=== PATIENT | male | born 1955 | race Caucasian/White ===

== ENCOUNTER 2022-03-25 10:03 | Outpatient (CLI) | payer OTHER, SELFPAY ==
[2022-03-25 13:56] LABS: Basophils Absolute Auto 0.04 K/uL (0.00-0.30); Basophils Percent Auto 0.8 % (0.0-3.0); Eosinophils Percent Auto 9.8 % (0.0-7.0); Hematocrit 44.3 % (37.0-53.0); Hemoglobin* 15.3 gm/dL (13.5-17.5); Immature Granulocytes Abs Auto 0.05 K/uL (0.00-0.30); Lymphocytes Percent Auto 17.1 % (20-44); Mean Corpuscular HGB Conc 35 gm/dL (32-36); Mean Corpuscular Hemoglobin 32 pg (26-34); Mean Corpuscular Volume 93 fL (80-100); Monocytes Percent Auto 12.4 % (0.0-11.0); Neutrophils Absolute Auto 2.88 K/uL (1.7-7.0); Neutrophils Percent Auto 58.9 % (42.0-72.0); Platelet Count* 159 K/uL (140-440); Red Blood Count 4.76 m/uL (4.30-5.90)
[2022-03-25 14:15] LABS: Slide Review Reflex No
== END 2022-03-25 10:04 | disposition home or self-care (01) ==
LOC: KYNREF 10:09
PROVIDERS: PCP Nurse Practitioner Family; Visit Provider Nurse Practitioner Family
DX: R05.9 Cough, unspecified (principal)
CPT/HCPCS: 36415; 85025

== ENCOUNTER 2022-06-24 10:33 | Outpatient (CLI) | payer OTHER, SELFPAY ==
--- NOTE | 2022-06-24 11:00 | CRLHL7_ITS ---
For Patients: As a result of the Century Cures Act, medical imaging exams and procedure reports are released immediately into your electronic medical record. You may view this report before your referring provider. If you have questions, please contact your health care provider. Indication: PALP LUMP LATERAL LT NECK Technique: Grayscale ultrasound of the left lateral mid neck performed. Comparison: None Findings: Normal soft tissues including normal subcutaneous fat noted. No solid mass or fluid collection. No adenopathy. Impression: Negative targeted ultrasound. Dictated by Indio Monterroso MD @ 06/24/2022 11:18:40 AM (Electronically Signed)
== END 2022-06-24 10:34 | disposition home or self-care (01) ==
LOC: US 10:35
PROVIDERS: PCP Nurse Practitioner Family; Visit Provider Nurse Practitioner Family
DX: M79.89 Other specified soft tissue disorders (principal)
CPT/HCPCS: 76536

== ENCOUNTER 2023-01-01 12:38 | Outpatient (CLI) | payer OTHER, SELFPAY ==
--- NOTE | 2023-01-01 13:00 | CRLHL7_ITS ---
For Patients: As a result of the Century Cures Act, medical imaging exams and procedure reports are released immediately into your electronic medical record. You may view this report before your referring provider. If you have questions, please contact your health care provider. INDICATION: CERVICALGIA. LUMP ON LEFT SIDE COMPARISON: Ultrasound 06/24/2022 TECHNIQUE: A CT volumetric acquisition was performed of the neck during intravenous infusion of 106 cc Isovue 370 nonionic intravenous contrast. Please note that all CT scans at this facility use dose modulation, iterative reconstruction, and/or weight-based dosing when appropriate to reduce radiation dose to as low as reasonably achievable. FINDINGS: The CT images demonstrate normal aeration of the mastoid air cells and middle ear cavities. A 9 millimeter mucous retention cyst is present within the right maxillary sinus. Remaining sinuses are clear. Rightward curvature of the nasal septum noted. The parotid and submandibular glands are of normal size and have uniform enhancement. The oropharynx appears normal. The valleculae, epiglottis, aryepiglottic folds and piriform sinuses appear normal. There is a normal appearance of the larynx and subglottic trachea. The thyroid gland is of normal size and has uniform density. There is no evidence of lymphadenopathy within the anterior and posterior cervical triangles or within the supraclavicular region. The lung apices are clear. IMPRESSION: No soft tissue mass or adenopathy to correlate with the patient`s symptoms. Please note that all CT scans at this facility use dose modulation, iterative reconstruction, and/or weight-based dosing when appropriate to reduce radiation dose to as low as reasonably achievable. Dictated by Indio Monterroso MD @ 01/02/2023 10:33:29 AM (Electronically Signed)
[2023-01-01 13:16] LABS: Estimated Glomerular Filt Rate 81 ml/min
== END 2023-01-01 12:39 | disposition home or self-care (01) ==
LOC: CT 12:39
PROVIDERS: PCP Nurse Practitioner Family; Visit Provider Nurse Practitioner Family
DX: M54.2 Cervicalgia (principal); M79.89 Other specified soft tissue disorders
CPT/HCPCS: 36415; 70491; 82565; Q9967

== ENCOUNTER 2023-06-12 07:59 | Outpatient (CLI) | payer OTHER, SELFPAY | END 2023-06-12 08:00 | disposition home or self-care (01) | LOC: WOUND 08:01 | PROVIDERS: PCP Nurse Practitioner Family; Visit Provider Nurse Practitioner Family | DX: S51.811A Laceration without foreign body of right forearm, initial encounter (principal); W23.2XXA Caught, crushed, jammed or pinched between a moving and stationary object, initial encounter; I10 Essential (primary) hypertension | CPT/HCPCS: 97597; G0463 ==

== ENCOUNTER 2023-06-26 09:25 | Outpatient (CLI) | payer OTHER, SELFPAY | END 2023-06-26 09:26 | disposition home or self-care (01) | LOC: WOUND 09:25 | PROVIDERS: PCP Nurse Practitioner Family; Visit Provider Nurse Practitioner Family | DX: Z09 Encounter for follow-up examination after completed treatment for conditions other than malignant neoplasm (principal); S51.811D Laceration without foreign body of right forearm, subsequent encounter; I10 Essential (primary) hypertension | CPT/HCPCS: G0463 ==

== ENCOUNTER 2024-05-09 09:27 | Outpatient (CLI) | payer OTHER, SELFPAY | END 2024-05-09 09:28 | disposition home or self-care (01) | PROVIDERS: PCP Nurse Practitioner Family; Visit Provider Nurse Practitioner Family | DX: N41.9 Inflammatory disease of prostate, unspecified (principal); R82.90 Unspecified abnormal findings in urine | CPT/HCPCS: 81001; 87086 ==

== ENCOUNTER 2024-05-13 07:42 | Outpatient (CLI) | payer OTHER, SELFPAY ==
--- NOTE | 2024-05-13 08:00 | CRLHL7_ITS ---
For Patients: As a result of the Century Cures Act, medical imaging exams and procedure reports are released immediately into your electronic medical record. You may view this report before your referring provider. If you have questions, please contact your health care provider. Indication: PROSTATITIS SYMPTOMS; PRESSURE OFF AND ON Technique: Noncontrast CT abdomen and pelvis Please note that all CT scans at this facility use dose modulation, iterative reconstruction, and/or weight-based dosing when appropriate to reduce radiation dose to as low as reasonably achievable. Comparison: None Findings: No pleural effusion. Normal noncontrast enhanced liver. No calcified gallstones or biliary obstruction. Pancreas normal. Normal spleen. Adrenal glands unremarkable. Simple left renal cysts are present measuring 2.9 cm and 2.1 cm. Right kidney unremarkable. No hydronephrosis. No renal stone. Normal ureters. Atherosclerotic changes. No aneurysm. No adenopathy. Bladder normal. No bladder stone. Prostate nonenlarged. Appendix is unremarkable. No hernia. 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 Facet degeneration lower lumbar spine. No vertebral body compression fracture. Impression: No renal, ureteral or bladder stone. No hydronephrosis or inflammatory change. Prostate is normal in size. No evidence of prostatic abscess. Please note that all CT scans at this facility use dose modulation, iterative reconstruction, and/or weight-based dosing when appropriate to reduce radiation dose to as low as reasonably achievable. Dictated by Indio Monterroso MD @ 05/13/2024 12:04:02 PM (Electronically Signed)
== END 2024-05-13 07:43 | disposition home or self-care (01) ==
LOC: CT 07:43
PROVIDERS: PCP Nurse Practitioner Family; Visit Provider Nurse Practitioner Family
DX: N41.9 Inflammatory disease of prostate, unspecified (principal)
CPT/HCPCS: 74176

== ENCOUNTER 2024-12-09 11:38 | Outpatient (CLI) | payer OTHER, SELFPAY ==
[2024-12-09 15:58] LABS: Albumin* 4.6 g/dL (3.3-5.0)
[2024-12-09 16:01] LABS: Alanine Aminotransferase* 29 U/L (4-50); Alkaline Phosphatase* 56 U/L (40-150); Aspartate Amino Transferase* 32 U/L (12-35); Bilirubin Direct* 0.1 mg/dL (0.0-0.5); Bilirubin Total* 0.7 mg/dL (0.1-1.5); Total Protein* 7.4 g/dL (6.0-8.3)
== END 2024-12-09 11:39 | disposition home or self-care (01) ==
LOC: NPINS 11:39
PROVIDERS: PCP Nurse Practitioner Family; Visit Provider Physician Assistant
DX: Z79.899 Other long term (current) drug therapy (principal)
CPT/HCPCS: 80076